=== PATIENT | male | born 1995 | race Caucasian/White ===

== ENCOUNTER 2024-07-03 06:58 | Inpatient (IN) | payer MEDICAID ==
[~2024-07-03] VITALS: Ht 177.8 cm; Wt 127.0 kg
[2024-07-03 07:26] LABS: BASOPHILS % 0.5 % (0.0-2.0); EOSINOPHILS % 2.7 % (0.0-5.0); HEMATOCRIT. 51.8 % (42.0-52.0); HEMOGLOBIN. 17.8 g/dL (14.0-18.0); MEAN CORPUSCULAR HEMOGLOBIN 32.3 pg (28.0-32.0); MEAN CORPUSCULAR HGB CONC 34.3 g/dL (31.0-37.0); MEAN CORPUSCULAR VOLUME 94.1 fL (80.0-94.0); MEAN PLATELET VOLUME 7.7 fl (7.4-10.4); MONOCYTES % 8.5 % (2.0-8.0); NEUTROPHILS % 39.3 % (40.0-76.0); PLATELET 303 x1000/uL (130-400); RED BLOOD CELL COUNT 5.51 mill/uL (4.7-6.1); RED CELL DISTRIBUTION WIDTH 12.9 % (11.6-14.6); WHITE BLOOD COUNT 8.5 x1000/uL (4.5-11.0)
[2024-07-03 07:33] LABS: CHLORIDE 103 mEq/L (98-107); POTASSIUM 3.3 mEq/L (3.5-5.1); SODIUM 138 mEq/L (136-145)
[2024-07-03 07:34] LABS: CALCIUM 9.4 mg/dL (8.7-10.4); CARBON DIOXIDE 28 mEq/L (21-32)
[2024-07-03 07:39] LABS: CREATININE 0.8 mg/dL (0.6-1.3); GLUCOSE 100 mg/dL (70-105); UREA NITROGEN BLOOD 9 mg/dL (9-23)
[2024-07-03 07:40] LABS: TROPONIN I HIGH SENSITIVITY 4 ng/L (3.0-53)
[2024-07-03 08:57] LABS: TRIGLYCERIDE 165 mg/dL (0-150)
[2024-07-03 08:58] LABS: LDL CHOLESTEROL 118 mg/dL (5-100)
[2024-07-03 08:59] LABS: CHOLESTEROL 170 mg/dL (<200); HDL CHOLESTEROL 39 mg/dL (>55)
[2024-07-03 09:02] LABS: T4 FREE 1.13 ng/dL (0.89-1.76); THYROID STIMULATING HORMONE 2.09 uIU/mL (0.55-4.78)
[2024-07-03 09:54] LABS: ETHANOL BLOOD < 10 mg/dL (<10)
[2024-07-03] MEDS ORDERED: GUAIFENESIN 200MG/10ML SUGAR FREE UDC PO PRN (10:30)
[2024-07-03] MEDS ORDERED: ONDANSETRON HCL 4MG/2ML INJ IV PRN (10:30)
[2024-07-03] MEDS ORDERED: ACETAMINOPHEN 325MG TABLET PO PRN ×2 (10:30)
[2024-07-03] MEDS ORDERED: DOCUSATE SODIUM 100MG CAPSULE PO PRN (10:30)
[2024-07-03] MEDS ORDERED: KETOROLAC 15MG/ML VIAL IV PRN (10:30)
[2024-07-03] MEDS ORDERED: NITROGLYCERIN 0.4MG TABLET SL SL PRN (10:30)
[2024-07-03] MEDS ORDERED: MAGNESIUM/ALUMINUM HYDROXIDE/SIMETHICONE 30ML UDC PO PRN (10:30)
[2024-07-03] MEDS ORDERED: IPRATROPIUM/ALBUTEROL 0.5-3(2.5)MG/3ML NEB NEB PRN (10:30)
[2024-07-03] MEDS: ASPIRIN 81MG EC TABLET PO SCH (11:01)
[2024-07-03] MEDS: FAMOTIDINE 20MG TABLET PO SCH (11:01)
[2024-07-03] MEDS: POTASSIUM CHLORIDE 20MEQ TABLET SR PO NR (11:01)
[2024-07-03] MEDS: ENOXAPARIN 30MG/0.3ML SYR SUBCUT SCH (11:02)
[2024-07-03 12:00] VITALS: BP 140/92; PULSE 60; PULSE 67; RESP 16; TEMP 36.61404; O2SAT 96
[2024-07-03 12:55] VITALS: BP 145/90; PULSE 60; RESP 18; TEMP 36.5848
[2024-07-03 14:19] LABS: *AMPHETAMINES SCREEN URINE NEGATIVE (NEGATIVE); *BARBITURATES SCREEN URINE NEGATIVE (NEGATIVE); *BENZODIAZEPINES SCREEN URINE NEGATIVE (NEGATIVE); *COCAINE SCREEN URINE NEGATIVE (NEGATIVE)
[2024-07-03 14:20] LABS: CANNABINOID URINE SCREEN PRESUMPTIVE POSITIVE (NEGATIVE); ECSTASY MDMA SCREEN URINE NEGATIVE (NEGATIVE); METHADONE URINE SCREEN NEGATIVE (NEGATIVE); OPIATES URINE SCREEN NEGATIVE (NEGATIVE); PHENCYCLIDINE URINE SCREEN NEGATIVE (NEGATIVE)
[2024-07-03 16:00] VITALS: BP 161/98; PULSE 67; RESP 18; TEMP 36.55848; O2SAT 96
[2024-07-03] MEDS: CLONIDINE 0.1MG TABLET PO PRN (17:32)
[2024-07-03 19:26] LABS: CREATINE KINASE 184 IU/L (46-171)
[2024-07-03 19:27] LABS: CREATINE KINASE MB FRACTION < 0.5 ng/mL (0.5-3.6)
[2024-07-03 19:33] LABS: TROPONIN I HIGH SENSITIVITY < 4 ng/L (3.0-53)
[2024-07-03] MEDS: ZOLPIDEM TARTRATE 5MG TABLET PO PRN (21:34)
[2024-07-04] VITALS: BP 142/84; PULSE 74; PULSE 90; RESP 19; RESP 20; TEMP 36.3918; TEMP 36.78072; O2SAT 95
[2024-07-04 00:22] LABS: CREATINE KINASE 177 IU/L (46-171)
[2024-07-04 00:23] LABS: CREATINE KINASE MB FRACTION < 0.5 ng/mL (0.5-3.6)
[2024-07-04 00:25] LABS: TROPONIN I HIGH SENSITIVITY < 4 ng/L (3.0-53)
[2024-07-04 04:00] VITALS: BP 123/79; PULSE 74; RESP 19; TEMP 36.78072; O2SAT 97
[2024-07-04 05:51] VITALS: BP 123/79; PULSE 74; RESP 19; TEMP 36.78072; O2SAT 97
[2024-07-04 07:32] LABS: CHLORIDE 104 mEq/L (98-107); POTASSIUM 3.1 mEq/L (3.5-5.1); SODIUM 138 mEq/L (136-145)
[2024-07-04 07:33] LABS: CARBON DIOXIDE 25 mEq/L (21-32)
[2024-07-04 07:34] LABS: CALCIUM 9.1 mg/dL (8.7-10.4)
[2024-07-04 07:39] LABS: CREATININE 0.7 mg/dL (0.6-1.3); GLUCOSE 97 mg/dL (70-105)
[2024-07-04 07:40] LABS: UREA NITROGEN BLOOD 6 mg/dL (9-23)
[2024-07-04 07:41] LABS: ALANINE AMINOTRANSFERASE 177 IU/L (10-49); ALBUMIN 4.7 g/dL (3.2-4.8); ASPARTATE AMINOTRANSFERASE 64 IU/L (<34)
[2024-07-04 07:42] LABS: BILIRUBIN TOTAL 1.2 mg/dL (0.1-1.0); PHOSPHORUS 3.4 mg/dL (2.5-4.9); PROTEIN TOTAL 7.5 g/dL (6.0-8.3)
[2024-07-04 08:00] VITALS: BP 132/86; PULSE 68; RESP 18; TEMP 36.78072; O2SAT 100
[2024-07-04 08:21] LABS: BASOPHILS % 0.7 % (0.0-2.0); HEMATOCRIT. 50.1 % (42.0-52.0); HEMOGLOBIN. 17.1 g/dL (14.0-18.0); MEAN CORPUSCULAR HEMOGLOBIN 32.2 pg (28.0-32.0); MEAN CORPUSCULAR VOLUME 94.5 fL (80.0-94.0); MEAN PLATELET VOLUME 8.1 fl (7.4-10.4); NEUTROPHILS % 35.3 % (40.0-76.0); PLATELET 288 x1000/uL (130-400); RED CELL DISTRIBUTION WIDTH 12.9 % (11.6-14.6); WHITE BLOOD COUNT 6.8 x1000/uL (4.5-11.0)
[2024-07-04 12:00] VITALS: BP 150/85; PULSE 63; RESP 18; TEMP 36.33624; O2SAT 97
[2024-07-04 15:08] VITALS: BP 142/93; PULSE 71; TEMP 97.7; O2SAT 95
== END 2024-07-04 15:35 | disposition home or self-care (01) | DRG 203 ==
LOC: ER 07:26 → 7EST 08:28
PROVIDERS: ADMIT Internal Medicine; ATTEND Internal Medicine
DX: R07.89 Other chest pain (principal); E66.9 Obesity, unspecified; E87.6 Hypokalemia; Z68.41 Body mass index [BMI] 40.0-44.9, adult; F17.210 Nicotine dependence, cigarettes, uncomplicated
CPT/HCPCS: 36415; 71045; 80048; 80053; 80061; 80305; 80320; 82550; 82553; 83036; 83735; 83880; 84100; 84439; 84443; 84484; 85025; 93005; 93306; 93970; 99285; J1650; G0480

== ENCOUNTER 2025-05-07 11:55 | Emergency (ER) | payer MEDICAID ==
[~2025-05-07] VITALS: Ht 177.8 cm; Wt 145.0 kg
[2025-05-07 11:59] VITALS: BP 138/91; PULSE 112; RESP 18; TEMP 37.7; O2SAT 96; O2SAT 98
[2025-05-07] MEDS ORDERED: OFLO5DRO4 RIGHT EAR (13:11)
== END 2025-05-07 14:06 | disposition home or self-care (01) ==
LOC: ER 11:55
DX: H60.91 Unspecified otitis externa, right ear (principal)
CPT/HCPCS: 99283

== ENCOUNTER 2025-08-07 10:05 | Emergency (ER) | payer MEDICAID ==
[~2025-08-07] VITALS: Ht 177.8 cm; Wt 131.0 kg
[~2025-08-07 10:05] MED LIST: OFLO5DRO4 RIGHT EAR
[2025-08-07 10:14] VITALS: O2SAT 98
[2025-08-07] MEDS: DEXAMETHASONE 10 MG/ML VIAL IV ONE (11:35)
[2025-08-07] MEDS ORDERED: CLIN-116 MT (12:16)
[2025-08-07] MEDS ORDERED: METH4TAB95 MT (12:16)
[2025-08-07 12:33] VITALS: BP 148/93; PULSE 79; RESP 16; TEMP 36.7; O2SAT 98
== END 2025-08-07 12:35 | disposition home or self-care (01) ==
LOC: ER 10:05
DX: J02.9 Acute pharyngitis, unspecified (principal); Z79.899 Other long term (current) drug therapy
CPT/HCPCS: 99283; 96374; 87430; 87070; J1100